=== PATIENT | female | born 1980 | race Caucasian/White ===

== ENCOUNTER 2018-06-30 13:50 | Day surgery (SDC) | payer OTHER ==
[2018-06-30] MEDS ORDERED: SODIUM CHLORIDE 1,000 ML IV STA (14:16)
--- NOTE | 2018-06-30 14:19 | PDOC ---
History of Present Illness <Consuelo Weems - Last Filed: 06/30/18 15:27> - History of Present Illness Initial Comments: 06/30/18 14:43 This is a 38 year old female with a significant past medical history of GERD, pre-diabetic (diet controlled), anxiety, and insomnia, that presents to the emergency department today complaining of abdominal pain for two days. Patient reports a sudden onset of bilateral pain felt behind the ribs that she describes as sharp after eating last night. The patient notes that the pain was severe, localized to RUQ. She tried walking outside in the cold and taking Tylenol to alleviate her symptoms, but neither helped. This morning, patient states she went to and had an US. Pt was found to have gallstones and referred to Dr. Thomas, who sent her to ED. Denies history of similar symptoms. Denies nausea, denies vomit. Denies fever, denies chills. Surgical hx: L fallopian tube removal <lAex Burnette - Last Filed: 07/01/18 07:23> - General Chief Complaint: Pain Stated Complaint: GALLBLADDER SURGERY Time Seen by Provider: 06/30/18 14:03 Past History <Consuelo Weems - Last Filed: 06/30/18 15:27> <Alex Brunette - Last Filed: 07/01/18 07:23> - Past Medical History Allergies/Adverse Reactions: Allergies Allergy/AdvReac Type Severity Reaction Status Date / Time caffeine Allergy Unknown Verified 06/30/18 14:00 [place] And Derivatives Allergy Unknown Verified 06/30/18 14:00 tomato Allergy Unknown Verified 06/30/18 14:00 Home Medications: Ambulatory Orders Oxycodone HCl 5 mg PO Q6H PRN #15 tablet MDD 6 06/30/18 Risperidone PO HS PRN 06/30/18 clonazePAM [Klonopin -] 0.5 mg PO DAILY PRN 06/30/18 Review of Systems - Review of Systems Comments:: 06/30/18 14:19 GENERAL/CONSTITUTIONAL: No fever or chills. No weakness. HEAD, EYES, EARS, NOSE AND THROAT: No change in vision. No ear pain or discharge. No sore throat. CARDIOVASCULAR: No chest pain, no shortness of breath, no loss of consciousness RESPIRATORY: No cough, wheezing, or hemoptysis. GASTROINTESTINAL: + abdominal pain, No nausea, vomiting, diarrhea or constipation. GENITOURINARY: No dysuria, frequency, or change in urination. MUSCULOSKELETAL: No joint or muscle swelling or pain. No neck or back pain. SKIN: No rash NEUROLOGIC: No vertigo, no change in strength/sensation. ENDOCRINE: No increased thirst. No abnormal weight change. HEMATOLOGIC/LYMPHATIC: No anemia, easy bleeding, or history of blood clots. ALLERGIC/IMMUNOLOGIC: No hives or skin allergy. <Ou,Alex - Last Filed: 07/01/18 07:23> *Physical Exam - Vital Signs Last Vital Signs Temp Pulse Resp BP Pulse Ox 98.3 F 55 L 16 102/67 100 06/30/18 13:59 06/30/18 13:59 06/30/18 13:59 06/30/18 13:59 06/30/18 13:59 <Consuelo Weems - Last Filed: 06/30/18 15:27> - Physical Exam Comments: 06/30/18 14:18 GENERAL: Awake, alert, and fully oriented, in no acute distress. HEAD: No signs of trauma EYES: PERRLA, EOMI, sclera anicteric, conjunctiva clear ENT: Auricles normal inspection, hearing grossly normal, nares patent, oropharynx clear without exudates. Moist mucosa NECK: Nontender, no stepoffs, Normal ROM, supple, no lymphadenopathy, JVD, or masses LUNGS: Breath sounds equal, clear to auscultation bilaterally. No wheezes, and no crackles HEART: Regular rate and rhythm, normal S1 and S2, no murmurs, rubs or gallops ABDOMEN: + Desouza's, No guarding, no rebound. No masses EXTREMITIES: Normal range of motion, no edema. No clubbing or cyanosis. No cords, erythema, or tenderness NEUROLOGICAL: Cranial nerves II through XII intact. 5/5 strength and sensation in all extremities, Normal speech, normal gait, normal cerebellar function SKIN: Warm, Dry, normal turgor, no rashes or lesions noted. <Ou,Alex - Last Filed: 07/01/18 07:23> ED Treatment Course - LABORATORY CBC & Chemistry Diagram: 06/30/18 14:32 06/30/18 14:32 - ADDITIONAL ORDERS Additional order review: Laboratory Results 06/30/18 06/30/18 06/30/18 14:32 14:32 14:06 PT with INR 12.4 INR 1.11 PTT (Actin FS) 27.4 Sodium 136 Potassium 4.2 Chloride 106 Carbon Dioxide 25 Anion Gap 5 L BUN 10 Creatinine 0.6 Creat Clearance w eGFR > 60 Random Glucose 91 Calcium 9.5 Total Bilirubin 0.6 AST 29 ALT 33 Alkaline Phosphatase 53 Total Protein 7.1 Albumin 4.2 Urine HCG, Qual Negative 06/30/18 14:32 RBC 4.49 MCV 85.8 MCHC 33.4 RDW 13.0 MPV 8.2 Neutrophils % 65.7 Lymphocytes % 29.1 Monocytes % 4.1 Eosinophils % 0.5 Basophils % 0.6 <Consuelo Weems - Last Filed: 06/30/18 15:27> - LABORATORY CBC & Chemistry Diagram: 06/30/18 14:32 06/30/18 14:32 - ADDITIONAL ORDERS Additional order review: Laboratory Results 06/30/18 14:06 Urine HCG, Qual Negative <lAex Burnette - Last Filed: 07/01/18 07:23> Medical Decision Making - Medical Decision Making 06/30/18 14:17 38 F with RUQ pain, found to have gallstones on outpt US. - Per Dr. Thomas, pt to go to OR today for lap chiquis - Labs ordered - Pt NPO - IVF 06/30/18 14:46 Pt admitted to hospitalist per Dr. Thomas's request <Alex Burnette - Last Filed: 07/01/18 07:23> *DC/Admit/Observation/Transfer - Attestations Scribe Attestion: 06/30/18 15:27 Documentation prepared by JENNIFER Cortes, acting as medical administrator for Alex Burnette MD. <Consuelo Weems - Last Filed: 06/30/18 15:27> - Discharge Dispostion Decision to Admit order: Yes - Attestations Physician Attestion: 06/30/18 14:47 I, Dr. Alex Burnette MD, attest that this document has been prepared under my direction and personally reviewed by me in its entirety. I further attest, that it accurately reflects all work, treatment, procedures and medical decision -making performed by me. <Alex Burnette - Last Filed: 07/01/18 07:23> Diagnosis at time of Disposition: Cholelithiasis - Discharge Dispostion Condition at time of disposition: Good
[2018-06-30 14:20] VITALS: BMI 32.2
[2018-06-30] MEDS ORDERED: AMPICILLIN NA/SULBACTAM NA 3 GM in SODIUM CHLORIDE 100 ML IVPB ONE (14:21)
[2018-06-30] MEDS ORDERED: BUPIVACAINE HCL/PF 0.5% (5MG/ML) 10 ML VIAL ONE (14:25)
[2018-06-30 14:48] LABS: BASO % 0.6 % (0-2.0); EOS % 0.5 % (0-4.5); HEMATOCRIT 38.5 % (32.4-45.2); HEMOGLOBIN 12.9 GM/dl (10.7-15.3); LYMPH % 29.1 % (8-40); MCH 28.6 pg (25.7-33.7); MCHC 33.4 g/dl (32.0-36.0); MEAN CELL VOLUME 85.8 fl (80-96); MEAN PLT VOLUME 8.2 fl (7.5-11.1); MONO % 4.1 % (3.8-10.2); NEUT % 65.7 % (42.8-82.8); PLATELET COUNT 270 K/MM3 (134-434); RBC 4.49 M/mm3 (3.60-5.2); WHITE BLOOD COUNT 12.1 K/mm3 (4.0-10.8)
[2018-06-30 15:03] LABS: ACTIVATED PTT 27.4 SECONDS (25.2-36.5)
[2018-06-30 15:05] LABS: ALBUMIN 4.2 g/dl (3.5-5.0); ALK PHOS 53 U/L (32-92); ANION GAP 5 MMOL/L (8-16); BILIRUBIN,TOTAL 0.6 mg/dl (0.2-1.0); BLOOD UREA NITROGEN 10 mg/dl (7-18); CALCIUM 9.5 mg/dl (8.4-10.2); CHLORIDE 106 mmol/L (98-107); CO2 25 mmol/L (22-28); CREATININE 0.6 mg/dl (0.6-1.3); GLUCOSE,RANDOM 91 mg/dl (74-106); POTASSIUM 4.2 mmol/L (3.5-5.1); SGOT/AST 29 U/L (10-42); SGPT/ALT 33 U/L (10-40); SODIUM 136 mmol/L (136-145); TOT PROT 7.1 g/dl (6.4-8.3)
[2018-06-30 15:07] LABS: INR 1.11 (0.82-1.09); PROTHROMBIN TIME (PATIENT) 12.4 SEC (10.2-13.0)
[2018-06-30] MEDS ORDERED: fentaNYL CITRATE 250 MCG/5 ML VIAL ONE (15:25)
[2018-06-30] MEDS ORDERED: ROCURONIUM BROMIDE 50 MG/5 ML VIAL ONE (15:25)
[2018-06-30 15:39] LABS: LIPASE 171 U/L (73-393)
[2018-06-30] MEDS ORDERED: NEOSTIGMINE METHYLSULFATE 0.5 MG/ML - 10 ML MDV ONE (15:55)
[2018-06-30] MEDS ORDERED: PROMETHAZINE HCL 25 MG/1 ML VIAL IVPUSH ONE (16:25)
[2018-06-30] MEDS ORDERED: PROMETHAZINE HCL 25 MG/1 ML VIAL ONE (16:36)
--- NOTE | 2018-06-30 16:40 | OP ---
Operative Note - Note: Operative Date: 06/30/18 Pre-Operative Diagnosis: cholelithiasis, acute cholecystitis Operation: laparscopic cholecystectomy Surgeon: Radha Thomas Assembler: Krystin Mack Anesthesiologist/BOTTLE PACKING MACHINE CLEANER: Miki Santos Anesthesia: General Specimens Removed: gallbladder Estimated Blood Loss (mls): 30 Fluid Volume Replaced (mls): 600 Operative Report Dictated: Yes
--- NOTE | 2018-06-30 16:41 | SURG ---
Surgery Simulation Analyst Note Simulation Analyst: Krystin Mack PA-C Date of Service: 06/30/18 Diagnosis: cholelithiasis, acute cholecystitis Procedure: laparscopic cholecystectomy I was present for the entirety of the operative procedure. For further detail, please refer to operative report. Visit type - Case Type Case Type: ED Admission - Emergency Emergency Visit: Yes Care time: The patient presented to the Emergency Department on the above date and was hospitalized for further evaluation of their emergent condition. - New patient This patient is new to me today: Yes Date on this admission: 06/30/18
[2018-06-30] MEDS ORDERED: ACETAMINOPHEN 325 MG TABLET (FP) PO PRN (16:49)
[2018-06-30] MEDS ORDERED: ONDANSETRON 4 MG/2 ML VIAL IVPUSH PRN ×2 (16:49→16:54)
[2018-06-30] MEDS ORDERED: oxyCODONE HCL 5 MG TABLET PO PRN ×2 (16:49)
[2018-06-30] MEDS ORDERED: PROMETHAZINE HCL 25 MG/1 ML VIAL IVPUSH PRN (16:49)
[2018-06-30] MEDS ORDERED: clonazePAM 0.5 MG TABLET PO PRN (16:58)
[2018-06-30] MEDS ORDERED: DEXTROSE 5%-0.45% SALINE 1,000 ML IV SCH (17:00)
--- NOTE | 2018-06-30 21:08 | HP ---
CHIEF COMPLAINT: abdominal pain PCP: unknown HISTORY OF PRESENT ILLNESS: History limited as patient was drowsy post -op, obtained from EMR 38 year old female with a significant past medical history of GERD, pre- diabetic (diet controlled), anxiety, and insomnia, that presented complaining of abdominal pain for two days. Patient reported a sudden onset of bilateral pain felt behind the ribs that she describes as sharp after eating last night. The patient noted that the pain was severe, localized to RUQ. Tylenol did not alleviate pain. Patient went to and had an US, found to have gallstones and referred to Dr. Thomas, who sent her to ED. Now s/p lap- cholecystectomy. Recent Travel: unknown PAST MEDICAL HISTORY: GERD, pre-diabetic (diet controlled), anxiety, and insomnia PAST SURGICAL HISTORY: L fallopian tube removal Social History: Smoking: unknown Alcohol: unknown Drugs: unknown Family History: unable to obtain Allergies caffeine Allergy (Unknown, Verified 06/30/18 14:00) [place] And Derivatives Allergy (Unknown, Verified 06/30/18 14:00) tomato Allergy (Unknown, Verified 06/30/18 14:00) HOME MEDICATIONS: Home Medications Medication Instructions Recorded Oxycodone HCl 5 mg PO Q6H PRN #15 tablet MDD 6 06/30/18 Risperidone PO HS PRN 06/30/18 clonazePAM [Klonopin -] 0.5 mg PO DAILY PRN 06/30/18 REVIEW OF SYSTEMS CONSTITUTIONAL: Absent: fever, chills, diaphoresis, generalized weakness, malaise, loss of appetite, weight change HEENT: Absent: rhinorrhea, nasal congestion, throat pain, throat swelling, difficulty swallowing, mouth swelling, ear pain, eye pain, visual changes CARDIOVASCULAR: Absent: chest pain, syncope, palpitations, irregular heart rate, lightheadedness , peripheral edema RESPIRATORY: Absent: cough, shortness of breath, dyspnea with exertion, orthopnea, wheezing, stridor, hemoptysis GASTROINTESTINAL: Absent:abdominal distension, nausea, vomiting, diarrhea, constipation, melena, hematochezia Present- abdominal pain, GENITOURINARY: Absent: dysuria, frequency, urgency, hesitancy, hematuria, flank pain, genital pain MUSCULOSKELETAL: Absent: myalgia, arthralgia, joint swelling, back pain, neck pain SKIN: Absent: rash, itching, pallor HEMATOLOGIC/IMMUNOLOGIC: Absent: easy bleeding, easy bruising, lymphadenopathy, frequent infections ENDOCRINE: Absent: unexplained weight gain, unexplained weight loss, heat intolerance, cold intolerance NEUROLOGIC: Absent: headache, focal weakness or paresthesias, dizziness, unsteady gait, seizure, mental status changes, bladder or bowel incontinence PSYCHIATRIC: Absent: anxiety, depression, suicidal or homicidal ideation, hallucinations. PHYSICAL EXAMINATION Vital Signs - 24 hr 06/30/18 06/30/18 06/30/18 13:59 16:42 16:45 Temperature 98.3 F 98.1 F Pulse Rate 55 L 82 72 Respiratory 16 18 Rate Blood Pressure 102/67 125/71 125/71 O2 Sat by Pulse 100 99 100 Oximetry (%) 06/30/18 06/30/18 06/30/18 16:50 16:54 16:55 Temperature 98.1 F Pulse Rate 70 58 L 64 Respiratory 17 18 Rate Blood Pressure 122/70 101/61 109/68 O2 Sat by Pulse 100 100 Oximetry (%) 06/30/18 06/30/18 06/30/18 17:10 17:25 17:30 Temperature 98.1 F Pulse Rate 58 L 79 79 Respiratory 18 84 H 84 H Rate Blood Pressure 122/70 122/66 122/66 O2 Sat by Pulse 100 100 Oximetry (%) 06/30/18 18:11 Temperature 98.1 F Pulse Rate 79 Respiratory 84 H Rate Blood Pressure 122/66 O2 Sat by Pulse Oximetry (%) GENERAL:drowsy HEAD: Normal with no signs of trauma. EYES: Pupils equal, round and reactive to light, extraocular movements intact, sclera anicteric, conjunctiva clear. No lid lag. EARS, NOSE, THROAT: oropharynx clear without exudates. Moist mucous membranes. NECK: Normal range of motion, supple without lymphadenopathy, JVD, or masses. LUNGS: Breath sounds equal, clear to auscultation bilaterally. No wheezes, and no crackles. No accessory muscle use. HEART: Regular rate and rhythm, normal S1 and S2 without murmur, rub or gallop. ABDOMEN: soft, nt, decreased BS, hepatomegaly or splenomegaly. MUSCULOSKELETAL: Normal range of motion at all joints. No bony deformities or tenderness. No CVA tenderness. UPPER EXTREMITIES: 2+ pulses, warm, well-perfused. No cyanosis. No clubbing. No peripheral edema. LOWER EXTREMITIES: 2+ pulses, warm, well-perfused. No calf tenderness. No peripheral edema. SKIN: Warm, dry, normal turgor, no rashes or lesions noted, normal capillary refill. Laboratory Results - last 24 hr 06/30/18 06/30/18 06/30/18 14:06 14:32 14:32 WBC 12.1 H RBC 4.49 Hgb 12.9 Hct 38.5 MCV 85.8 MCH 28.6 MCHC 33.4 RDW 13.0 Plt Count 270 MPV 8.2 Absolute Neuts (auto) 7.9 Neutrophils % 65.7 Lymphocytes % 29.1 Monocytes % 4.1 Eosinophils % 0.5 Basophils % 0.6 PT with INR 12.4 INR 1.11 PTT (Actin FS) 27.4 Sodium Potassium Chloride Carbon Dioxide Anion Gap BUN Creatinine Creat Clearance w eGFR Random Glucose Calcium Total Bilirubin AST ALT Alkaline Phosphatase Total Protein Albumin Lipase Urine HCG, Qual Negative Blood Type Antibody Screen 06/30/18 06/30/18 06/30/18 14:32 14:32 14:32 WBC RBC Hgb Hct MCV MCH MCHC RDW Plt Count MPV Absolute Neuts (auto) Neutrophils % Lymphocytes % Monocytes % Eosinophils % Basophils % PT with INR INR PTT (Actin FS) Sodium 136 Potassium 4.2 Chloride 106 Carbon Dioxide 25 Anion Gap 5 L BUN 10 Creatinine 0.6 Creat Clearance w eGFR > 60 Random Glucose 91 Calcium 9.5 Total Bilirubin 0.6 AST 29 ALT 33 Alkaline Phosphatase 53 Total Protein 7.1 Albumin 4.2 Lipase 171 Urine HCG, Qual Blood Type O POSITIVE O POSITIVE Antibody Screen Negative ASSESSMENT/PLAN: Acute cholecystitis s/p lap cholecystectomy -admit to med/surg -IV fluid hydration -ZOfran IV prn if nausea or vomiting -Toradol PRN for pain control -diet -clear liquid diet -heparin sc for dvt ppx Visit type - Emergency Visit Emergency Visit: Yes Care time: The patient presented to the Emergency Department on the above date and was hospitalized for further evaluation of their emergent condition. - New Patient This patient is new to me today: Yes Date on this admission: 06/30/18 - Critical Care Critical Care patient: No
[2018-06-30] MEDS ORDERED: morphine CARPU-JECT 2 MG/1 ML DISP.SYRIN IVPUSH PRN (21:12)
[2018-06-30] MEDS ORDERED: ONDANSETRON 4 MG/2 ML VIAL IVPB PRN (21:18)
[2018-06-30] MEDS ORDERED: KETOROLAC TROMETHAMINE 30 MG/1 ML VIAL IVPUSH PRN ×2 (21:25→22:00)
[2018-06-30] MEDS ORDERED: DEXTROSE 5%-NORMAL SALINE 1,000 ML IV SCH (21:30)
[2018-06-30] MEDS: HEPARIN NA (PORCINE) 5,000 UNITS/ML 1ML VIAL SQ SCH (22:19)
[2018-07-01] MEDS: HEPARIN NA (PORCINE) 5,000 UNITS/ML 1ML VIAL SQ SCH (06:31)
--- NOTE | 2018-07-01 06:53 | OP ---
DATE OF OPERATION: 06/30/2018 PREOPERATIVE DIAGNOSIS: Acute cholecystitis, cholelithiasis. POSTOPERATIVE DIAGNOSIS: Acute cholecystitis, cholelithiasis. PROCEDURE: Laparoscopy, cholecystectomy. SURGEON: Radha Thomas MD LEGAL SERVICE SPECIALIST: NADIA Mcclelland ANESTHESIA: General endotracheal intubation. DESCRIPTION OF PROCEDURE: The patient was admitted with abdominal pain, and ultrasound showed multiple gallstones. The patient was brought in the operating room. Umbilical incision was made. Tented the abdominal cavity with an open technique. Under direct vision, the gallbladder was grasped laterally with two 5-mm ports and graspers and medially through the 5-mm port dissection was done to identify the neck of the gallbladder to the cystic duct to the common duct. Once it was clearly identified and also the artery was clearly identified, clamping was done of the cystic artery and cystic duct, and the gallbladder was removed from the liver edge without any complications. After good hemostasis, the gallbladder was removed through the abdominal port, which was a 10-mm port in the back. Fascia was then closed with No. 1 Vicryl. Marcaine was injected, and the patient went to the recovery room with no complications. Oni [id number]
[2018-07-01] MEDS ORDERED: ACETAMINOPHEN 325 MG TABLET (FP) PO PRN (08:00)
[2018-07-01 10:28] VITALS: BP 95/57; PULSE 88; TEMP 98.4
[2018-07-01] MEDS ORDERED: SODIUM CHLORIDE 500 ML IV STA (14:08)
--- NOTE | 2018-07-07 14:38 | PATH ---
Surgical Pathology Report Patient Name: AMAN MAHMOOD Med. Rec. #: [id number] /Age/Gender: 1980 (Age: 38) / F Account: [id number] Location: [facility] MED-SURG Taken: 07/03/2018 Received: 07/03/2018 Reported: 07/07/2018 Physicians: Radha Thomas M.D. Specimen(s) Received GALLBLADDER AND STONES Clinical History Cholecystitis Final Diagnosis GALLBLADDER AND STONES, CHOLECYSTECTOMY: ACUTE AND CHRONIC CHOLECYSTITIS WITH CHOLELITHIASIS. TWO BENIGN PERICYSTIC LYMPH NODES Electronically Signed Akanksha Salinas M.D. Gross Description Received in formalin, labeled "gallbladder and stones," is a 7.5 x 3.2 x 2.6 cm. gallbladder with a 0.2 cm. in length portion of cystic duct attached. There are 2 pericystic lymph nodes present averaging 0.6 cm in greatest dimension. The outer surface is lanier-jamison with a focal defect and varies from smooth to shaggy. The lumen contains lanier-yellow, sludgelike bile as well as abundant yellow, irregular to fragmented choleliths ranging from 0.1-0.7 cm in greatest dimension. The mucosa is lanier with focal erosions. The wall of the gallbladder averages 0.2 cm. in thickness. Ship Construction Teacher sections are submitted in 3 cassettes as follows: 1-cystic duct margin and benefits representative gallbladder; 2-3-one bisected lymph node each. 07/04/2018 saudi07/04/2018
== END 2018-07-01 10:00 | disposition home or self-care (01) ==
LOC: FER 13:50 → FASU 14:47 → SUATTDRO 14:47 → FASUSAT 14:47 → FASU 14:53 → FM/S 18:10 → FASUSAT 07-01 10:00
PROVIDERS: ATTEND Nurse Practitioner Acute Care
PROC: 0FT44ZZ Resection of Gallbladder, Percutaneous Endoscopic Approach (ICD-10-PCS; principal; 2018-06-30 15:42)
DX: K80.00 Calculus of gallbladder with acute cholecystitis without obstruction (principal)
CPT/HCPCS: 36415; 80053; 83690; 84703; 85025; 85610; 85730; 86850; 86900; 86901; 88304-TC; 94760; 99282-25; J1644